=== PATIENT | male | born 1970 | race Caucasian/White ===

== ENCOUNTER 2021-07-05 08:53 | Emergency (ER) | payer BC ==
[2021-07-05 11:27] LABS: HEMOGLOBIN 15.1 gm/dl (14.0-17.5); RED BLOOD COUNT 5.31 M/UL (4.20-5.50); WHITE BLOOD COUNT 3.7 K/UL (4.5-11.0)
[2021-07-05 11:41] LABS: BUN/CREATININE RATIO 18 (0-10)
[2021-07-05] MEDS ORDERED: ZOFRAN ODT 4 MG4 MG SL (13:08)
== END 2021-07-05 13:36 | disposition home or self-care (01) ==
LOC: ER1 08:53
PROVIDERS: Physician Assistant
DX: U07.1 COVID-19 (principal)
CPT/HCPCS: 80053; 81001; 83690; 85025; 93005; 96374; 96375; 99285; J1885; J2405